=== PATIENT | female | born 1965 | race Caucasian/White ===

== ENCOUNTER → 2020-07-20 10:16 | Outpatient (CLI) | payer BC, SELFPAY ==
--- NOTE | ~2020-07-20 | XR_ITS ---
XR hip LT min 3V w AP pelvis DATE: 07/20/2020 10:46 INDICATION: Left hip pain TECHNIQUE: AP pelvis. AP and lateral views of left hip COMPARISON: 04/03/2019 pelvis and left hip FINDINGS: Status post L5 laminectomy. Mild levoscoliosis and multilevel degenerative disc disease of the lumbar spine. The pubic symphysis and sacroiliac joints are intact. No pelvic fracture or bone destruction. There is mild left hip osteoarthritic arthritis including mild left femoral head spurring. No fracture, dislocation, avascular necrosis or bone destruction of left hip. IMPRESSION: Mild left hip osteoarthritis Levoscoliosis, multilevel degenerative disc disease of lumbar spine L5 laminectomy Reviewed, dictated and finalized at location A.
--- NOTE | ~2020-07-20 | CT_ITS ---
EXAMINATION: CT lung screening EXAM DATE: 07/20/2020 10:55 INDICATION: F17.210 - Nicotine dependence, cigarettes, uncomplicated. TECHNIQUE: Spiral low dose CT of the chest without contrast. Axial, coronal and sagittal images were reviewed. The dose-length product (DLP) for this examination was 54.58 mGy-cm. The exposure was ta ilored according to patient size (auto mA exposure control), and iterative reconstruction (ASIR) was used as additional dose reduction technique. There is no prior study for comparison. FINDINGS: There is elongated right middle lobe opacity with some faint calcifications identified, re gion measuring approximately 2.4 x 0.7 cm, appearance most consistent with postinfectious residua. Th ere is a round nodule in the right lower lobe superior segment measuring 6 x 8 mm with central coarse calcification, also most likely postinfectious. There is mild emphysema and hyperinflation. Tracheo bronchial tree is patent. There is no mediastinal, hilar or axillary lymphadenopathy. There are n o pleural or pericardial effusions. There is no pneumothorax. Heart normal in size. No evidence of coronary arterial calcification. Upper abdomen is unremarkable. There are cholecystectomy clips. There is thoracic spondylosis without osteoblastic or osteolytic lesions identified. IMPRESSION: Lung-RADS category 3, probably benign (1-2% chance of malignancy); recommend followup LDC T in 3-6 months. Reviewed, dictated and finalized at location A. IMPRESSION: Lung-RADS category 3, probably benign (1-2% chance of malignancy); recommend followup LDCT in 3-6 months.
== END ==
PROVIDERS: PCP Family Medicine; Visit Provider Family Medicine
DX: Z12.2 Encounter for screening for malignant neoplasm of respiratory organs (principal); F17.210 Nicotine dependence, cigarettes, uncomplicated; M16.12 Unilateral primary osteoarthritis, left hip; M47.816 Spondylosis without myelopathy or radiculopathy, lumbar region
CPT/HCPCS: 71271; 73502

== ENCOUNTER → 2020-08-01 07:51 | Outpatient (CLI) | payer BC, SELFPAY ==
--- NOTE | ~2020-08-01 | MR_ITS ---
EXAMINATION: MR hip LT wo con DATE: 08/01/2020 08:52 INDICATION: Left hip pain TECHNIQUE: Magnetic resonance imaging (MRI) of the left hip was performed without intravenous contra st. Sequences included full-field axial PD-weighted FS FSE and T1-weighted FSE, coronal of the pelvis with PD-weighted FS FSE, small field of view of the left hip with axial PD-weighted FS FSE, sagitta l PD-weighted FS FSE and coronal PD weighted FS FSE. Additional radial T1-weighted FGR oriented ortho gonal to the acetabular rim were obtained for evaluation of the labrum. COMPARISON: Left hip radiographs dated 07/20/2020 FINDINGS: Bones/labrum/cartilage: Alignment is normal. 7 mm T1 hypointense, peripherally T2 hyperintense lesion at the posterior intert rochanteric region of the proximal right femur with subtle corresponding sclerotic lesion evident at this location on CT dated 03/31/2004 most consistent with a benign enchondroma. No fracture, avascula r necrosis or other pathologic marrow replacing process. Mild to moderate left hip osteoarthritis wit h posterior inferior and anterosuperior predominant nonuniform joint space narrowing with partial thi ckness cartilage loss. Mild subarticular cystic change and mild marrow edema at the anterosuperior le ft acetabulum. Small marginal osteophytes along the rim of the acetabulum and the posterior inferior femoral head. Degenerative tearing of the anterosuperior to posterior superior glenoid labrum. Simila r mild to moderate osteoarthritis and degenerative labral tearing suggested but not diagnostically ev aluated at the contralateral right hip on the larger field of view images. Severe lumbar spondylosis with postoperative changes of prior L5 and partial L4 laminectomies which are new since lumbar spine radiographs dated 03/16/2019. Fluid: Symmetric physiologic amount of fluid within both hip joints. Soft tissues: Normal and symmetric muscle bulk and signal in the pelvis and visualized proximal thighs. The iliopso as, gluteal and proximal hamstring tendons are normal. Limited evaluation of visceral organs of the p antonella is unremarkable. No pathologically enlarged pelvic/inguinal lymphadenopathy. IMPRESSION: 1. Mild to moderate osteoarthritis with associated labral degeneration of the left hip and similar ap pearance but not diagnostically evaluated on the larger field of view images at the contralateral rig ht hip. 2. Severe lumbar spondylosis with relatively recent postoperative change of prior L5 and partial L4 l aminectomies. Reviewed, dictated and finalized at location A. IMPRESSION: 1. Mild to moderate osteoarthritis with associated labral degeneration of the l eft hip and similar appearance but not diagnostically evaluated on the larger f ield of view images at the contralateral right hip. 2. Severe lumbar spondylosis with relatively recent postoperative change of mine or L5 and partial L4 laminectomies.
== END ==
PROVIDERS: PCP Family Medicine; Visit Provider Family Medicine
DX: M47.896 Other spondylosis, lumbar region (principal); M16.12 Unilateral primary osteoarthritis, left hip
CPT/HCPCS: 73721

== ENCOUNTER 2020-10-25 01:43 | Day surgery (SDC) | payer BC, SELFPAY ==
[2020-10-12 13:14] VITALS: BMI 21.2
[2020-10-25 11:02] VITALS: BP 113/80; PULSE 68; RESP 20; TEMP 36.1; O2SAT 100
[2020-10-25] MEDS: LACTATED RINGERS 1,000 ML 150 ML IV CONT (11:08)
--- NOTE | 2020-10-25 11:13 | WPDANESEPPF ---
Anes - Initial Pre Proc Eval Procedure: Operation Date: 10/25/20 12:00 Proposed Procedures p Screening Colonoscopy - Juaquin Rodrigez MD Date/Time: 10/25/20 11:13 Surgeon: Juaquin Rodrigez MD Pre Op Diagnosis: family hx of colon ca, neoplasm screening Patient Data Age: 55 Gender: F Height: 1.7 m Weight: 59.8 kg Last Vital Signs Temp 36.1 C L 10/25/20 11:02 Pulse 68 10/25/20 11:02 Resp 20 10/25/20 11:02 BP 113/80 10/25/20 11:02 Pulse Ox 100 10/25/20 11:02 Allergies Allergy/AdvReac Type Severity Reaction Status Date / Time No Known Allergies Allergy Verified 10/25/20 11:02 Home Medications Medication Instructions Recorded Confirmed Type ic-br-hgpi-FA-Ca carb-vit K 1 tablet PO DAILY 10/12/20 10/25/20 History [Women's Multivitamin] Patient hx anesthesia problems: none Family hx anesthesia problems: none PMFSH Past Medical History Medical History Low back pain Personal history of tobacco use Synovial cyst (~05/2020) Surgical History Surgical History H/O laminectomy (~05/2020) 5.27.20 H/O right breast biopsy 2013 History of cholecystectomy (~2001) History of lumbar laminectomy 5..20/ dr. foy Status post epidural steroid injection lumbar 2..20 Family History Family History Grandparent Family history of malignant neoplasm Mother Family history of congestive heart failure Social History Social History Smoking packs per day: 1 Smoking cigarettes per day: 20.0 Years smoked: 30 Smoking pack-years: 30.00 Smoking status: Current every day smoker Tobacco type: cigarettes Second hand tobacco smoke exposure: Yes Additional smoking assessment comments: 7 cigarettes per day Alcohol intake: current Drinks per week: 8 Living arrangements: with family Spiritual care concerns: No Anes - Eval Final PreProcedure Day of Procedure 10/25/20 11:13 Patient weight: normal Heart: regular rate and rhythm Lungs: clear to auscultation and normal air movement Airway: Mallampati scale class II Neurological: alert and oriented Last oral intake: >/= 8 hours ASA classification: III Emergent: no Anesthetic plan: proceed Anesthesia type and monitoring: general GIVS and standard monitoring Informed Consent: The patient's anesthetic plan and its attendant risks and benefits were discussed with the patient/family/POA. Questions were solicited and answers provided to the satisfaction of the patient/family/POA.
--- NOTE | 2020-10-25 11:43 | WPDGICN ---
Assessment and Plan Assessment and plan (1) Family history of colonic polyps: Code(s): Z83.71 - Family history of colonic polyps Status: Acute Assessment and Plan: Patient has a family history of colon polyps. For this reason screening colonoscopy advised. Further recommendations will be given after endoscopy. GI Consult Note Consult date/time: 10/25/20 11:43 HPI: Jennifer Huffman is a 55 year old female presents for screening colonoscopy. Patient reports that her current weight appetite bowel movements are normal. She denies abdominal pain. She has had no bleeding. Her bowel habits are unremarkable. Family history is significant for colon polyps in her father. Last colonoscopy was 2013. Review of Systems Review of Systems: All systems reviewed & are unremarkable except as noted in HPI and below PMFSH Past Medical History Medical History Low back pain Personal history of tobacco use Synovial cyst (~05/2020) Surgical History Surgical History H/O laminectomy (~05/2020) 5.27.20 H/O right breast biopsy 2013 History of cholecystectomy (~2001) History of lumbar laminectomy 5../ dr. foy Status post epidural steroid injection lumbar 2.. Family History Family History Grandparent Family history of malignant neoplasm Mother Family history of congestive heart failure Social History Social History Smoking packs per day: 1 Smoking cigarettes per day: 20.0 Years smoked: 30 Smoking pack-years: 30.00 Smoking status: Current every day smoker Tobacco type: cigarettes Second hand tobacco smoke exposure: Yes Additional smoking assessment comments: 7 cigarettes per day Alcohol intake: current Drinks per week: 8 Living arrangements: with family Spiritual care concerns: No Meds Home Medications and Allergies Home Medications Medication Instructions Recorded Confirmed Type lo-kn-gstw-FA-Ca carb-vit K 1 tablet PO DAILY 10/12/20 10/25/20 History [Women's Multivitamin] Allergies Allergy/AdvReac Type Severity Reaction Status Date / Time No Known Allergies Allergy Verified 10/25/20 11:02 Vital Signs Vital Signs - 24 hr 10/25/20 11:02 Temperature 96.9 F L Pulse Rate 68 Respiratory Rate 20 Blood Pressure 113/80 Pulse Oximetry 100 Exam Narrative: Exam Narrative: Physical exam reveals patient be alert. Vital signs stable. HEENT exam is unremarkable. Patient is anicteric. Lungs are clear to auscultation and percussion. Heart is without murmur or extra sounds. Abdominal exam bowel sounds are present soft nontender with no organomegaly. Digital external rectal exam normal.
[2020-10-25 12:41] VITALS: BP 90/46; PULSE 65; RESP 20; O2SAT 99
[2020-10-25 12:51] VITALS: BP 90/46; PULSE 78; RESP 18; O2SAT 100
[2020-10-25 13:01] VITALS: BP 112/85; PULSE 55; RESP 20; O2SAT 99
== END 2020-10-25 13:08 | disposition home or self-care (01) ==
PROVIDERS: PCP Family Medicine; Visit Provider Internal Medicine Gastroenterology
PROC: 0DJD8ZZ Inspection of Lower Intestinal Tract, Via Natural or Artificial Opening Endoscopic (ICD-10-PCS; CPT 45378; principal; 2020-10-25 12:00)
DX: Z12.11 Encounter for screening for malignant neoplasm of colon (principal); Z83.71 Family history of colonic polyps; K64.8 Other hemorrhoids; F17.210 Nicotine dependence, cigarettes, uncomplicated
CPT/HCPCS: 45378; J2704; J7120

== ENCOUNTER → 2020-10-28 10:16 | Outpatient (CLI) | payer BC, SELFPAY ==
--- NOTE | ~2020-10-28 | CT_ITS ---
EXAMINATION: CT diagnostic chest wo con EXAM DATE: 10/28/2020 10:32 INDICATION: F17.210 - Nicotine dependence, cigarettes, uncomplicated. Abnormal CT 07/20/2020. TECHNIQUE: Spiral CT of the chest without contrast. Axial, coronal and sagittal images of the chest were reviewed. Coronal maximum intensity pixel images of chest reviewed. The dose-length product ( DLP) for this examination was 51.27 mGy-cm. The exposure was tailored according to patient size (aut o mA exposure control), and iterative reconstruction (ASIR) was used as additional dose reduction inderjit hnique. Comparison is made to prior examination from 07/20/2020. FINDINGS: Both of the previously described right lung nodules with calcification are stable in size and appearance, larger in the right middle lobe measuring approximately 2.4 x 0.7 cm. This is consis tent with postinfectious residua. No new or suspicious nodules. Mild emphysema and hyperinflation. Th ere are no pleural or pericardial effusions. Tracheobronchial tree is patent. There is no mediast inal, hilar or axillary lymphadenopathy. There is no pneumothorax. Heart normal in size. No ismael dence of coronary arterial calcification. Upper abdomen is unremarkable. There is thoracic spondyl osis without osteoblastic or osteolytic lesions identified. IMPRESSION: 1. Stable exam. Lung-RADS category 2, benign appearance or behavior; recommend continued LDCT screeni ng in 1 year. 2. Mild emphysema and hyperinflation. Reviewed, dictated and finalized at location A. IMPRESSION: 1. Stable exam. Lung-RADS category 2, benign appearance or behavior; recommend continued LDCT screening in 1 year. 2. Mild emphysema and hyperinflation.
== END ==
PROVIDERS: PCP Family Medicine; Visit Provider Family Medicine
DX: F17.210 Nicotine dependence, cigarettes, uncomplicated (principal); J43.9 Emphysema, unspecified; R91.8 Other nonspecific abnormal finding of lung field
CPT/HCPCS: 71250

== ENCOUNTER 2020-12-12 07:58 | Outpatient (CLI) | payer BC, SELFPAY ==
--- NOTE | 2020-12-12 12:34 | WPDPFTINT ---
PFT Procedure Performed PFT Procedure Performed Plethysmography (Lung Vol) Diffusing Cap (DLCO) Flow Vol Loop Spirometry w/o Bronchodil PFT Interpretation This is a pulmonary function test with spirometry, plethysmography and diffusing capacity. The test was performed and results interpreted in accordance with the 2019 and 2005 ATS/ERS Task Force guidelines respectively using the Global Lung Function Initiative-2012 reference equations. Patient demonstrated good effort and cooperation. Reproducibility criteria were met. The quality of the spirometry maneuver was Grade B. Findings: Spirometry:There is decreased maximal expiratory airflow at low lung volumes with a concave expiratory flow tracing. The FVC is 3.68 L, 101% predicted. The FEV1 is 2.49 L, 87% predicted. The FEV1: FVC ratio is 68%. Plethysmography: The total lung capacity is 6.16 L, 112% predicted. Functional residual capacity is 3.81 L, 122% predicted. The residual volume is 2.48 L, 121% predicted. Diffusing capacity: The absolute diffusion capacity is 21.0, 90% predicted. The diffusing capacity corrected for alveolar volume is 4.00, 91% predicted. Impression: There is a mild obstructive abnormality with a normal FEV1 and without significant improvement after inhaling a single dose of albuterol. The lung volumes are normal. The diffusing capacity is normal. There are no prior studies for comparison
== END 2020-12-12 07:59 | disposition home or self-care (01) ==
PROVIDERS: PCP Family Medicine; Visit Provider Family Medicine
DX: J43.9 Emphysema, unspecified (principal); F17.219 Nicotine dependence, cigarettes, with unspecified nicotine-induced disorders; R94.2 Abnormal results of pulmonary function studies
CPT/HCPCS: 94375; 94726; 94729

== ENCOUNTER → 2021-12-01 08:17 | Outpatient (CLI) | payer BC, SELFPAY ==
--- NOTE | ~2021-12-01 | CT_ITS ---
EXAMINATION: CT lung screening DATE: 12/01/2021 08:33 INDICATION: Personal history of tobacco dependence TECHNIQUE: Computed tomography (CT) of the chest was performed without intravenous contrast. The dose -length product was 48.23 mGy-cm. Automated exposure control and iterative reconstruction technique w ere employed. COMPARISON: CT dated 10/28/2020 and 07/20/2020 FINDINGS: Mild mediastinal lymphadenopathy. Precarinal lymph node measures 10 mm short axis. Heart si ze normal. No significant pleural or pericardial effusion. Stable centrally calcified 12 mm nodule ri ght lower lobe, image 58. Stable linear and nodular soft tissue in the right middle lobe. The soft ti ssue contains internal calcifications, most likely postinfectious. Mild emphysema. No endobronchial l esions. Mild thoracic spondylosis. No new pulmonary nodules or masses. IMPRESSION: 1. Lung-RADS category 2: Benign appearance or behavior. Continue annual screening with noncontrast lo w-dose chest CT in 12 months. Reviewed, dictated and finalized at location B. IMPRESSION: 1. Lung-RADS category 2: Benign appearance or behavior. Continue annual screeni ng with noncontrast low-dose chest CT in 12 months.
== END ==
PROVIDERS: PCP Family Medicine; Visit Provider Family Medicine
DX: Z12.2 Encounter for screening for malignant neoplasm of respiratory organs (principal); Z87.891 Personal history of nicotine dependence
CPT/HCPCS: 71271

== ENCOUNTER → 2023-02-20 08:50 | Outpatient (CLI) | payer BC, SELFPAY ==
--- NOTE | ~2023-02-20 | CT_ITS ---
CT Scan of the Chest without Contrast: Clinical Indication: Lung cancer screening, personal history of nicotine dependence Technique: Contiguous sections were acquired throughout the chest without intravenous contrast. Dose reduction technique was used on this scan by utilizing automated exposure control and iterative recon struction technique. The dose-length product (DLP) was 84.19 mGy-cm. COMPARISON: 12/01/2021, 07/20/2020 Findings: There is no evidence of any significant mediastinal, hilar or axillary lymphadenopathy. The mediastin al soft tissues appear normal. There is no evidence of pleural or pericardial effusion. Calcified right lower lobe granuloma present. Calcified granulomas in the right middle lobe are also present. Images through the upper abdomen reveal no abnormalities. Impression: Lung RADS 2: Benign appearance. 12 month follow-up screening CT advised. Reviewed, dictated and finalized at [facility]. SWAMPER Impression: Lung RADS 2: Benign appearance. 12 month follow-up screening CT advised.
== END ==
PROVIDERS: PCP Family Medicine; Visit Provider Family Medicine
DX: Z12.2 Encounter for screening for malignant neoplasm of respiratory organs (principal); R91.8 Other nonspecific abnormal finding of lung field; F17.219 Nicotine dependence, cigarettes, with unspecified nicotine-induced disorders
CPT/HCPCS: 71271

== ENCOUNTER 2023-11-04 07:50 | Outpatient (CLI) | payer BC, SELFPAY | END 2023-11-04 07:51 | disposition home or self-care (01) | LOC: ANHAUDASC 07:51 | PROVIDERS: PCP Family Medicine; Visit Provider Family Medicine | DX: H90.3 Sensorineural hearing loss, bilateral (principal) | CPT/HCPCS: 92557; 92567 ==

== ENCOUNTER 2024-03-09 13:43 | Outpatient (CLI) | payer BC, SELFPAY ==
--- NOTE | ~2024-03-09 | CT_ITS ---
EXAMINATION:CT lung screening DATE: 03/09/2024 14:03 INDICATION: Personal history of nicotine dependence. Smoker who quit 1 year ago with 30 pack year his tory. TECHNIQUE: Computed tomography (CT) of the chest was performed without intravenous contrast. Automate d exposure control and iterative reconstruction technique were employed. The dose-length product (DLP ) was 47.17 mGy-cm. COMPARISON: Chest CT 02/20/2023 FINDINGS: There is mild scarring at the lung apices. There is a 2 mm nodule in right upper lobe. Calc ified right lung nodules are consistent with old granulomatous disease. No pleural effusion. The hear t size is normal. No pericardial effusion. There are changes of cholecystectomy. There is mild chroni c anterior wedging of multiple vertebral bodies. There is severe thoracic spondylosis. IMPRESSION: 1. Lung-RADS category 2: Benign appearance or behavior. Continue annual screening with noncontrast lo w-dose chest CT in 12 months. Reviewed, dictated and finalized at location A. [employer] WORK[employer] IMPRESSION: 1. Lung-RADS category 2: Benign appearance or behavior. Continue annual screeni ng with noncontrast low-dose chest CT in 12 months.
== END 2024-03-09 13:44 | disposition home or self-care (01) ==
LOC: MICIMG 13:44
PROVIDERS: PCP Family Medicine; Visit Provider Family Medicine
DX: Z12.2 Encounter for screening for malignant neoplasm of respiratory organs (principal); Z87.891 Personal history of nicotine dependence
CPT/HCPCS: 71271

== ENCOUNTER 2024-09-24 09:32 | Outpatient (CLI) | payer BC, SELFPAY ==
--- NOTE | ~2024-09-24 | XR_ITS ---
XR chest 2V 09/24/2024 09:52 Indication: Pulmonary nodule. Procedure: 2 view chest Comparison: CT dated 03/09/2024 Findings: There are calcified nodules right mid thorax consistent with chronic granulomatous disease with similar appearance compared with prior CT allowing for differences of technique. Heart size norm al. No focal air space disease, pulmonary edema, pleural effusion or suspected pneumothorax. Impression: 1: No acute cardiopulmonary disease. 2: Chronic granulomatous disease. Reviewed, dictated and finalized at location B. Impression: 1: No acute cardiopulmonary disease. 2: Chronic granulomatous disease.
== END 2024-09-24 09:33 | disposition home or self-care (01) ==
LOC: GOSHIMG 09:32
PROVIDERS: PCP Family Medicine; Visit Provider Family Medicine
DX: R91.1 Solitary pulmonary nodule (principal)
CPT/HCPCS: 71046

== ENCOUNTER 2024-10-15 08:48 | Outpatient (CLI) | payer BC, SELFPAY ==
--- OUTSIDE RECORDS SUMMARY | 2024-10-15 08:52 | XMS_ITS | Referral Summary ---
Author Organization [facility] Address [address] [place] [address] Care Team Providers Care Chalk Machine Operator Name Role Phone Zahra Canchola MD Primary Care Provider + Encounters Date Type Department Care Team Description 09/13/2024 Telephone [facility] at [address] [phone] Michelle Beasley NP Follow-up 08/17/2024 Results Follow-Up [facility] at [address] [phone] Michelle Beasley NP XR Chest Pa Lateral 2 Views 08/17/2024 12:20 PM CDT Ancillary Procedure [facility] Imaging at [address] [phone] Acute cough 08/17/2024 11:30 AM CDT Office Visit [facility] at [address] [phone] Michelle Beasley NP Acute cough (Primary Dx) 08/12/2024 9:45 AM CDT Office Visit [facility] at [address] [phone] Zac Jimenez NP Flu-like symptoms (Primary Dx); Acute cough from Last 3 Months Allergies No known active allergies Medications multivitamin-Ca -iron-minerals tablet Take by mouth Active famotidine (PEPCID) 40 mg tablet Take 1 tablet (40 mg total) by mouth daily 2 Active benzonatate (TESSALON) 200 mg capsuleIndicati ons:Acute cough Take 1 capsule (200 mg total) by mouth 3 (three) times a day as needed for cough keep tessalon out of reach of children, especially children under the age of 10, due to possible serious risk such as if ingested by children under the age of 10. 30 capsule 5 Active Additional Information Patient not taking.Reported on 08/17/2024 albuterol HFA (PROVENTIL HFA,VENTOLIN HFA,PROAIR HFA) 90 mcg/actuation inhalerIndicati ons:Acute cough Inhale 2 puffs every 6 (six) hours as needed for wheezing or shortness of breath 18 g 5 Active Active Problems Problem Noted Date Diagnosed Date Trigger ring finger of right hand 04/01/2024 Old complex tear of medial meniscus of right kne e 12/07/2019 Chronic pain of left knee 11/12/2019 Internal derangement of left knee 11/12/2019 Synovial cyst of lumbar facet joint 05/06/2019 Social History Tobacco Use Types Packs/Day Years Used Date Smoking Tobacco: Every Day Cigarettes 0.5 30 Smokeless Tobacco: Never Tobacco Cessation:Ready to Q uit: Not Asked; Counseling Given: Not Answered Comments Unknown Sex and Gender Information Value Date Recorded Sex Assigned at Not on file 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 Gender Identity Not on file Sexual Orientation Not on file Last Filed Vital Signs Vital Sign Reading Time Taken Comments Blood Pressure 125/79 08/17/2024 11:30 AM CDT Pulse 73 08/17/2024 12:10 PM CDT Temperature 36.6 C (97.8 F) 08/17/2024 11:30 AM CDT Respiratory Rate 22 08/17/2024 11:30 AM CDT Oxygen Saturation 93% 08/17/2024 12:16 PM CDT Inhaled Oxygen Concentration - - Weight 60.8 kg (134 lb) 08/17/2024 11:30 AM CDT Height 170.2 cm (5' 7) 08/17/2024 11:30 AM CDT Body Mass Index 20.99 08/17/2024 11:30 AM CDT Plan of Treatment Not on file Procedures Procedure Name Priority Date/Time Associated Diagnosis Comments XR CHEST PA LATERAL 2 VIEWS Schedule TERRELL, Read TERRELL (Appt Today, Awaiting Results) 08/17/2024 12:26 PM CDT Acute cough POC INFLUENZA A/B, COVID-19 ANTIGEN Routine 08/12/2024 10:09 AM CDT Flu-like symptoms POCT RAPID STREP Routine 08/12/2024 10:0 9 AM CDT Flu-like symptoms SCREENING MAMMOGRAM BILATERAL W GOYO Schedule Routine, Read Routine (OP Routine) 12/03/2023 9:32 AM CDT Screening mammogram, encounter for from Last 3 Months or Most Recently Relevant to Health Maintenance Results * XR Chest Pa Lateral 2 Views (08/17/2024 12:26 PM CDT) Anatomical Region Laterality Modality Body, Chest N/A Digital Radiogra phy 08/17/2024 4:51 PM CDT Narrative 08/17/2024 5:02 PM CDT EXAM DESCRIPTION: XR CHEST PA LATERAL 2 VIEWS REASON FOR STUDY: cough Pt complains of cough for about ten days. No surgery to heart, lungs, or chest. Ex-smoker quitting a year and a half ago. Pt smoked about 25-30 years, 1 PPD TECHNIQUE: Frontal and lateral radiographic view(s) of the chest. COMPARISON: None FINDINGS: The heart, mediastinum, and pulmonary vasculature are grossly unremarkable. There is no definite evidence of a pneumothorax. There is an irregular nodular opacity in the lower right lung measuring up to 3.0 cm. There is no definite evidence of pleural effusion. The osseous structures are acutely grossly unremarkable. IMPRESSION: Irregular nodular opacity in the lower right lung, which is indeterminate in etiology. Further evaluation with chest CT is recommended as clinically indicated. Attempts were made to contact the ordering clinician at the time of the dictation, which were unsuccessful. THIS IS AN ELECTRONICALLY VERIFIED FINAL REPORT 08/17/2024 5:02 PM - Electronically signed by Melissa Nam D.O. PS T: Report ID: [id number] Reading Location: [id number] Procedure Note Cyril Melissa Vitaly, DO - 08/17/2024 EXAM DESCRIPTION: XR CHEST PA LATERAL 2 VIEWS REASON FOR STUDY: cough Pt complains of cough for about ten days. No surgery to heart, lungs, or chest. Ex-smoker quitting a year and a half ago. Pt smoked about 25-30years, 1 PPD TECHNIQUE: Frontal and lateral radiographic view(s) of the chest. COMPARISON: None FINDINGS: The heart, mediastinum, and pulmonary vasculature are grossly unremarkable. There is no definite evidence of a pneumothorax. There isan irregular nodular opacity in the lower right lung measuring up to 3.0 cm. There is no definite evidence of pleural effusion. The osseous structures are acutely grossly unremarkable. IMPRESSION: Irregular nodular opacity in the lower right lung, which is indeterminatein etiology. Further evaluation with chest CT is recommended as clinically indicated. Attempts were made to contact the ordering clinician at the time of the dictation, which were unsuccessful. THIS IS AN ELECTRONICALLY VERIFIED FINAL REPORT 08/17/2024 5:02 PM - Electronically signed by Melissa Nam D.O. PS T: Report ID: [id number] Reading Location: [id number] Michelle Beasley BREASTFEEDING PROGRAM COORDINATOR IMG XR PROCEDURES Final Re sult * POC Influenza A/B, COVID-19 antigen (08/12/2024 10:09 AM CDT) Influenza A Ag, POC Negative Negative [facility] Influenza B Ag, POC Negative Negative [facility] COVID-19 Ag POC Presumptive Negative Presumptive Negative, Invalid [facility] Nasal 08/12/2024 10:0 9 AM CDT Zac Jimenez NP POINT OF CARE TEST ORDERABLES F inal Result [facility] [address] [place] [address] * POCT rapid strep A (08/12/2024 10:09 AM CDT) Rapid Strep A, POC Negative Negative Swab 08/12/2024 10:0 9 AM CDT Zac Jimenez NP POINT OF CARE TEST ORDERABLES F inal Result * Screening Mammogram Bilateral W Goyo (12/03/2023 9:32 AM CDT) Anatomical Region Laterality Modality Breast Bilateral Mammography Narrative 12/04/2023 1:14 PM CDT Mammogram Technique: Bilateral Digital Breast Tomosynthesis, Bilateral C-view 2D Screening mammogram. Views obtained: bilateral craniocaudal and bilateral mediolateral oblique. Computer Aided Detection was performed. Mammogram Findings: The present examination has been compared to prior imaging studies performed at [facility] on 11/03/2021, 12/03/2022 and 01/01/2023. The breasts are heterogeneously dense, which may obscure small masses. There is no suspicious abnormality in either breast. Impression: There is no mammographic evidence of malignancy. Annual screening mammography is recommended. If supplemental screening is desired, breast MRI would be recommended in this patient with heterogeneously dense breasts. OVERALL FINAL ASSESSMENT: BI-RADS CATEGORY 1: Negative. Procedure Note Sada Castro MD - 12/04/2023 Mammogram Technique: Bilateral Digital Breast Tomosynthesis, Bilateral C-view 2D Screening mammogram. Views obtained: bilateral craniocaudal and bilateral mediolateral oblique. Computer Aided Detection was performed. Mammogram Findings: The present examination has been compared to prior imaging studies performed at [facility] on 11/03/2021, 12/03/2022 and 01/01/2023. The breasts are heterogeneously dense, which may obscure small masses. There is no suspicious abnormality in either breast. Impression: There is no mammographic evidence of malignancy. Annual screening mammography is recommended. If supplemental screeningis desired, breast MRI would be recommended in this patient with heterogeneously dense breasts. OVERALL FINAL ASSESSMENT: BI-RADS CATEGORY 1: Negative. us Self Screening Mammogram IMG MAMMO PROCEDURES Fi nal Result from Last 3 Months or Most Recently Relevant to Health Maintenance Insurance [employer] Care Teams Chalk Machine Operator Relationship Specialty Start Date End Date Zahra Canchola MD PCP - General Family Medicine 10/11/22
--- OUTSIDE RECORDS SUMMARY | 2024-10-15 08:52 | XMS_ITS | Clinical Summary ---
Author Organization [facility] Address [address] [place] [address] Care Team Providers Care Jury Consultant Name Role Phone Zahra Canchola MD Primary Care Provider + Allergies No known active allergies Medications multivitamin-Ca [...] Synovial cyst of lumbar facet joint 05/06/2019 Encounters Date Type Department Care Team Description 09/13/2024 Telephone [facility] at [address] [id number] Michelle Beasley NP Follow-up 08/17/2024 12:20 PM CDT Ancillary Procedure [facility] Imaging at [address] [phone] Acute cough 08/17/2024 11:30 AM CDT Office Visit [facility] at [address] [phone] Michelle Beasley NP Acute cough (Primary Dx) 08/17/2024 Results Follow-Up [facility] at [address] [phone] Michelle Beasley NP XR Chest Pa Lateral 2 Views 08/12/2024 9:45 AM CDT Office Visit [facility] at [address] [phone] Zac Jimenez NP Flu-like symptoms (Primary Dx); Acute cough from Last 3 Months Surgical History Surgery Date Site/Laterality Comments CHOLECYSTECTOMY COLONOSCOPY 04/15/2020 - 04/14/2021 LAMINECTOMY 04/15/2019 - 04/14/2020 SPINE SURGERY 04/15/2020 - 04/14/2021 cyst removal Medical History Medical History Date Comments No pertinent past medical history Family History Medical History Relation Name Comments Colon polyps Father No Known Problems Mother Relation Name Status Comments Father Mother Social History Tobacco Use Types Packs/Day Years Used Date Smoking Tobacco: Every Day Cigarettes 0.5 30 Smokeless Tobacco: Never Tobacco Cessation:Ready to Q uit: Not Asked; Counseling Given: Not Answered Comments Unknown Sex and Gender Information Value Date Recorded Sex Assigned at Not on file 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 Gender Identity Not on file Sexual Orientation Not on file Obstetrics History Last Filed Vital Signs Vital Sign Reading [...] 08/17/2024 11:30 AM CDT Plan of Treatment Health Maintenance Due Date Last Done Comments Cervical Cancer Screening 1965 Colon Cancer Screening-Colonoscopy 1965 Depression Screening 1965 Hepatitis C Screening 1965 Hepatitis B Screening 02/18/1982 Regular Well Visit/Exam 18-64 02/18/1982 Pneumococcal vaccine <65 (1 of 2 - PCV) 02/18/1983 Zoster Vaccine (1 of 2) 02/18/2014 Breast Cancer Screening-Mammogram 12/02/2024 12/03/2023, 12/03/2022, 11/03/2021, Additional history exists Influenza Vaccine (#1) 2024 02/09/2020 DTaP/Tdap/Td Vaccine (2 - Td or Tdap) 05/09/2027 05/09/2017 Procedures Procedure Name Priority Date/Time Associated Diagnosis Comments XR CHEST PA LATERAL 2 VIEWS Schedule TERRELL, Read TERRELL (Appt Today, Awaiting Results) 08/17/2024 12:26 PM CDT Acute cough POC INFLUENZA A/B, COVID-19 ANTIGEN Routine 08/12/2024 10:09 AM CDT Flu-like symptoms POCT RAPID STREP Routine 08/12/2024 10:0 9 AM CDT Flu-like symptoms SCREENING MAMMOGRAM BILATERAL W CHAN Schedule Routine, Read Routine (OP Routine) 12/03/2023 [...] Melissa Nam D.O. PS T: Report ID: [id number] Reading Location: [id number] Procedure Note Melissa Nam, DO - 08/17/2024 EXAM DESCRIPTION: XR CHEST [...] Melissa Nam D.O. PS T: Report ID: [id number] Reading Location: [id number] Michelle Beasley NETWORK ADMIN IMG XR PROCEDURES Final Re sult * POC Influenza A/B, COVID-19 antigen (08/12/2024 10:09 AM CDT) Influenza A Ag, POC Negative Negative [facility] Influenza B Ag, POC Negative Negative [facility] COVID-19 Ag POC Presumptive Negative Presumptive Negative, Invalid [facility] Nasal 08/12/2024 10:0 9 AM CDT Zac Jimenez NP POINT OF CARE TEST ORDERABLES F inal Result Performing Organization Address City/State/[facility] Co de Phone Number [facility] [address] [place] [address] * POCT rapid strep A (08/12/2024 10:09 AM CDT) Rapid Strep A, POC Negative Negative Swab 08/12/2024 10:0 9 AM CDT Zac Jimenez NP POINT OF CARE TEST ORDERABLES F inal Result * Screening Mammogram Bilateral W Chan (12/03/2023 9:32 AM CDT) Anatomical Region Laterality Modality Breast Bilateral Mammography Narrative 12/04/2023 1:14 PM CDT Mammogram Technique: Bilateral Digital Breast Tomosynthesis, Bilateral C-view 2D Screening mammogram. Views obtained: bilateral craniocaudal and bilateral mediolateral oblique. Computer Aided Detection was performed. Mammogram Findings: The present examination has been compared to prior imaging studies performed at [facility] on 11/03/2021, 12/03/2022 and 01/01/2023. [...] compared to prior imaging studies performed at [facility] on 11/03/2021, 12/03/2022 and 01/01/2023. [...] Most Recently Relevant to Health Maintenance Insurance [facility] [employer] [place] Netac [place] Care Teams Jury Consultant Relationship Specialty Start Date End Date Zahra Canchola MD PCP - General Family Medicine 10/11/22
[2024-10-15 12:49] LABS: Hematocrit 41.4 % (37.0-47.0); Hemoglobin 13.2 g/dL (12.0-15.0); Immature Granulocyte Percent A 0.2 % (0-0.5); Lymphocytes Absolute Auto 1.38 K/mm3 (0.9-3.2); Mean Corpuscular HGB Conc 31.9 g/dl (32-36); Mean Corpuscular Hemoglobin 29.1 pg (26-34); Mean Corpuscular Volume 91.4 fl (80-100); Nucleated Red Blood Cells Absolute Auto 0.000 K/mm3 (0.0-0.012); Nucleated Red Blood Cells Perc 0.0 % (0.0-0.2); Platelet Count Result 293 k/mm3 (150-375); Red Blood Count 4.53 M/mm3 (4.2-5.4); White Blood Count 5.3 K/mm3 (4.5-10.0)
[2024-10-15 13:04] LABS: Alanine Aminotransferase 14 U/L (6-35); Albumin Level 4.7 g/dL (3.5-5.1); Alkaline Phosphatase 44 U/L (38-126); Anion Gap 7 mmol/L (4-12); Aspartate Amino Transferase 39 U/L (14-36); Bilirubin,Total 0.8 mg/dL (0.2-1.3); Blood Urea Nitrogen 20 mg/dL (7-17); Calcium 9.0 mg/dL (8.4-10.2); Carbon Dioxide 28 mmol/L (22-30); Chloride 104 mmol/L (98-107); Cholesterol 234 mg/dL (0-200); Estimated Glomerular Filt Rate > 60; Glucose 89 mg/dL (65-110); HDL Direct 74 mg/dL; Potassium 4.6 mmol/L (3.4-5.0); Sodium 139 mmol/L (137-145); Total Protein 7.5 g/dL (6.3-8.2); Triglycerides 36 mg/dL (<150)
== END 2024-10-15 08:49 | disposition home or self-care (01) ==
LOC: ANHGOSHLAB 08:49
PROVIDERS: PCP Family Medicine; Visit Provider Family Medicine
DX: Z00.00 Encounter for general adult medical examination without abnormal findings (principal)
CPT/HCPCS: 36415; 80053; 80061; 85025

== ENCOUNTER 2025-03-18 00:56 | Day surgery (SDC) | payer BC, SELFPAY ==
[2025-03-16 12:56] VITALS: BMI 21.4
--- OUTSIDE RECORDS SUMMARY | 2025-03-18 01:00 | XMS_ITS | Clinical Summary ---
Author Organization [facility] Address [address] [place] [address] Care Team Providers Care Engraver Signature Name Role Phone Zahra Canchola MD Primary [...] Synovial cyst of lumbar facet joint 05/06/2019 Surgical History Surgery Date Site/Laterality Comments CHOLECYSTECTOMY COLONOSCOPY 04/15/2020 - 04/14/2021 LAMINECTOMY 04/15/2019 - 04/14/2020 SPINE SURGERY 04/15/2020 - 04/14/2021 cyst removal BREAST BIOPSY 04/15/2013 - 04/14/2014 Right needle biopsy- benign Medical History Medical History Date Comments No pertinent past medical history Family History Medical History Relation Name Comments Colon polyps Father No Known Problems Mother Relation Name Status Comments Father Mother Social History Tobacco Use Types Packs/Day Years Used Date Smoking Tobacco: Every Day Cigarettes 0.5 30 Smokeless Tobacco: Never Tobacco Cessation:Ready to Q uit: Not Asked; Counseling Given: Not Answered Comments No Sex and Gender Information Value Date Recorded Sex Assigned at Not on file 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 Gender Identity Not on file Sexual Orientation Not on file Obstetrics History Para Term AB IAB SAB Ectopic Multiple Livin g Live Births 0 0 0 0 0 0 0 0 0 0 0 Last Filed Vital Signs Vital Sign Reading Time Taken Comments Blood Pressure 125/79 08/17/2024 11:30 AM CDT Pulse 73 08/17/2024 12:10 PM CDT Temperature 36.6 C (97.8 F) 08/17/2024 11:30 AM CDT Respiratory Rate 22 08/17/2024 11:30 AM CDT Oxygen Saturation 93% 08/17/2024 12:16 PM CDT Inhaled Oxygen Concentration - - Weight 61.2 kg (135 lb) 12/16/2024 1:01 PM CDT Height 170.2 cm (5' 7) 12/16/2024 1:01 PM CDT Body Mass Index 21.14 12/16/2024 1:01 PM CDT Plan of Treatment Health Maintenance Due Date Last Done Comments Cervical Cancer Screening 1965 Colon Cancer Screening-Colonoscopy 1964 Depression Screening 1964 Hepatitis C Screening 1965 Hepatitis B Screening 02/18/1982 Regular Well Visit/Exam 18-64 02/18/1982 Zoster Vaccine (1 of 2) 02/18/2014 Pneumococcal vaccine <65 (2 of 2 - PCV) 04/18/2022 04/18/2021 Influenza Vaccine (#1) 2024 01/23/2021, 2019 Breast Cancer Screening-Mammogram 12/16/2025 12/16/2024, 12/03/2023, 12/03/2022, Additional history exists DTaP/Tdap/Td Vaccine (2 - Td or Tdap) 05/09/2027 05/09/2017 Procedures Procedure Name Priority Date/Time Associated Diagnosis Comments SCREENING MAMMOGRAM BILATERAL W CHAN Schedule Routine, Read Routine (OP Routine) 12/16/2024 1:06 PM CDT Screening mammogram, encounter for from Last 3 Months or Most Recently Relevant to Health Maintenance Results * Screening Mammogram Bilateral W Chan (12/16/2024 1:06 PM CDT) Anatomical Region Laterality Modality Breast Bilateral Mammography Impressions 12/17/2024 8:26 AM CDT Bilateral No evidence of malignancy in either breast. OVERALL BI-RADS FINAL ASSESSMENT: 2 - Benign RECOMMENDATION: Recommend bilateral annual screening mammography. If supplemental screening is desired for heterogeneously dense breast tissue, consider breast MRI every 1-2 years. If breast MRI cannot be performed, contrast-enhanced mammography is an alternative. Narrative 12/17/2024 8:26 AM CDT EXAMINATION: Screening Mammogram Bilateral W Chan: 12/16/2024 COMPARISON: Relevant prior studies available at the time of interpretation were reviewed, including the most recent mammogram on: 12/03/2023, 01/01/2023, 12/03/2022, and 11/03/2021. TECHNIQUE: Mammography was performed with 2D and 3D digital breast tomosynthesis (DBT) images. CAD was utilized. BREAST PARENCHYMAL COMPOSITION: The breasts are heterogeneously dense, which may obscure small masses. FINDINGS: Bilateral There is no suspicious mass, calcification, or architectural distortion in either breast. us Self Screening Mammogram IMG MAMMO PROCEDURES Fi nal Result from Last 3 Months or Most Recently Relevant to Health Maintenance Insurance [facility] [place] Care Teams Engraver Signature Relationship Specialty Start Date End Date Zahra Canchola MD PCP - General Family Medicine 10/11/22
[2025-03-18 08:22] VITALS: BP 124/62; PULSE 60; RESP 20; TEMP 36.4; O2SAT 99
[2025-03-18] MEDS: LACTATED RINGERS 1,000 ML 150 ML IV CONT (08:35)
--- NOTE | 2025-03-18 08:35 | P.PNAN_ITS ---
Anes - Initial Pre Proc Eval Procedure: Operation Date: 03/18/25 09:30 Proposed Procedures p Diagnostic Colonoscopy - Tello Lomeli MD Date/Time: 03/18/25 08:35 Surgeon: Tello Lomeli MD Pre Op Diagnosis: Change in bowel habit Patient Data Age: 60 Gender: F Height: 1.7 m Weight: 61.7 kg Last Vital Signs Temp 36.4 C L 03/18/25 08:22 Pulse 60 03/18/25 08:22 Resp 20 03/18/25 08:22 BP 124/62 03/18/25 08:22 Pulse Ox 99 03/18/25 08:22 O2 Del Method Room Air 03/18/25 08:22 Allergies Allergy/AdvReac Type Severity Reaction Status Date / Time No Known Allergies Allergy Verified 03/18/25 08:20 Home Medications ?Medication ?Instructions ?Recorded ?Confirmed ?Type mugypoyl-rqk-[id number]-FA-Ca carb-vit K 1 tablet PO DAILY 0 10/12/20 03/18/25 History 18 mg iron-400 mcg-500 mg tablet (Women's Multivitamin) famotidine 40 mg tablet See Rx Instructions .Route 0 08/24/24 03/18/25 Rx .COMPLEX #90 tabs Patient hx anesthesia problems: none Family hx anesthesia problems: none Results Review: All pre-operative results and documents have been reviewed as part of the pre-operative evaluation. [facility] Past Medical History Medical History Sciatica Epigastric pain Synovial cyst (~05/2020) Low back pain Personal history of tobacco use Surgical History Surgical History H/O right breast biopsy 2013 H/O laminectomy (~05/2020) 5..20 History of lumbar laminectomy 5..20/ dr. foy Status post epidural steroid injection lumbar 2..20 History of cholecystectomy (~2001) Family History Family History Grandparent Family history of malignant neoplasm Mother Family history of congestive heart failure Social History Social History Smoking packs per day: 1 Smoking cigarettes per day: 20.0 Years smoked: 25 Smoking pack-years: 25.00 Smoking status: Current every day smoker Tobacco type: e-cigarettes/vaping Second hand tobacco smoke exposure: Yes Smoking end date: 07/15/22 Additional smoking assessment comments: Currently Vapes Alcohol intake: current Drinks per week: 7 Substance use: current Substance use type: marijuana Lack of Transportation: No Lack of Food: Never True Current Housing: I Have Housing Concerned About Future Housing: No Difficulty Paying Gas/Electric Bills: No Difficulty Paying for Meds: No Currently Unemployed: No Education: Bachelor's Degree Difficulty w/ Childcare or Family Care: No Living arrangements: with family Spiritual care concerns: No Anes - Eval Final PreProcedure Day of Procedure 03/18/25 08:35 Patient weight: normal Heart: regular rate and rhythm Lungs: decreased breath sounds Airway: Mallampati scale class II Neurological: alert and oriented Last oral intake: >/= 8 hours ASA classification: III Emergent: no Anesthetic plan: proceed Anesthesia type and monitoring: general GIVS and standard monitoring Results Review: All pre-operative results and documents have been reviewed as part of the pre- operative evaluation. Informed Consent: The patient's anesthetic plan and its attendant risks and benefits were discussed with the patient/family/POA. Questions were solicited and answers provided to the satisfaction of the patient/family/POA.
--- NOTE | 2025-03-18 08:46 | P.HP_ITS ---
History of Present Illness History of Present Illness Consent: Risks, benefits, and alternatives have been discussed and questions answered. Patient agrees to proceed with procedure. Chief complaint: Change in bowel habit Narrative: Jennifer Huffman is a 60 year old female with last colonoscopy 2020, last several weeks with change bowel habits Review of Systems Review of Systems: All systems reviewed & are unremarkable except as noted in HPI and below PMFSH Past Medical History Medical History Sciatica Epigastric pain Synovial cyst (~05/2020) Low back pain Personal history of tobacco use Surgical History Surgical History H/O right breast biopsy 2013 H/O laminectomy (~05/2020) 09.09.19 History of lumbar laminectomy 09.09.19/ dr. foy Status post epidural steroid injection lumbar 06.10.19 History of cholecystectomy (~2001) Family History Family History Grandparent Family history of malignant neoplasm Mother Family history of congestive heart failure Social History Social History Smoking packs per day: 1 Smoking cigarettes per day: 20.0 Years smoked: 25 Smoking pack-years: 25.00 Smoking status: Current every day smoker Tobacco type: e-cigarettes/vaping Second hand tobacco smoke exposure: Yes Smoking end date: 07/15/22 Additional smoking assessment comments: Currently Vapes Alcohol intake: current Drinks per week: 7 Substance use: current Substance use type: marijuana Lack of Transportation: No Lack of Food: Never True Current Housing: I Have Housing Concerned About Future Housing: No Difficulty Paying Gas/Electric Bills: No Difficulty Paying for Meds: No Currently Unemployed: No Education: Bachelor's Degree Difficulty w/ Childcare or Family Care: No Living arrangements: with family Spiritual care concerns: No Meds Home Medications and Allergies Home Medications ?Medication ?Instructions ?Recorded ?Confirmed ?Type [id number]-[id number]-[id number]-FA-Ca carb-vit K 1 tablet PO DAILY 0 10/12/20 03/18/25 History 18 mg iron-400 mcg-500 mg tablet (Women's Multivitamin) famotidine 40 mg tablet See Rx Instructions .Route 0 08/24/24 03/18/25 Rx .COMPLEX #90 tabs Allergies Allergy/AdvReac Type Severity Reaction Status Date / Time No Known Allergies Allergy Verified 03/18/25 08:20 Vital Signs Vital Signs - 24 hr 03/18/25 08:22 Temperature 97.5 F L Pulse Rate 60 Respiratory Rate 20 Blood Pressure 124/62 Pulse Oximetry 99 Oxygen Delivery Room Air Exam Const: General: comfortable and no acute distress HENMT: Face/Nose/Sinus: Normal nares present Eyes: General: appearance normal, both eyes and all related structures Neck: Neck: no JVD Resp: Auscultation: clear to auscultation bilaterally Cardio: Rate: regular rate Rhythm: regular rhythm GI: Inspection: non-distended GI Palp: Yes Soft to palpation Skin: General skin exam: normal color Extrem: General: normal to inspection Psych: Mental Status: mental status grossly normal Assessment and Plan Assessment and plan (1) Change in stool habits: Code(s): R19.4 - Change in bowel habit Status: Acute Assessment and Plan: colonoscopy with bx
--- NOTE | 2025-03-18 08:56 | S_PTH ---
PATIENT: Jennifer Huffman LOC: [facility]#:[id number] AGE/SX: 60/F ROOM: RE03/18/[address]: Tello Lomeli MD : 1965 BED: DIS: 03/18/2025 SPEC #: [id number] RECD: 03/18/25 09:40 STATUS: JAVIER REPatricia #: [id number] GENEVIEVE: 03/18/25 08:[address]: Tello Lomeli DEPT: [facility] Surgical RECD BY: Dee Mcgee ENTERED: 03/18/25 09:40 SP TYPE: Surgical OTHR DR: Zahra Canchola MD Tissues: A - Colon Biopsy Procedures: Hematoxylin and Eosin Stain Gross and Microscopic Level 4
[2025-03-18 08:57] VITALS: BP 97/60; PULSE 66; RESP 18; O2SAT 99
[2025-03-18 09:07] VITALS: BP 98/55; PULSE 64; RESP 16; O2SAT 99
[2025-03-18 09:17] VITALS: BP 119/65; PULSE 60; RESP 15; O2SAT 100
== END 2025-03-18 09:27 | disposition home or self-care (01) ==
PROVIDERS: PCP Family Medicine; Referring Provider Family Medicine; Visit Provider Internal Medicine Gastroenterology
PROC: 0DJD8ZZ Inspection of Lower Intestinal Tract, Via Natural or Artificial Opening Endoscopic (ICD-10-PCS; CPT 45378; principal; 2025-03-18 09:30)
DX: R19.4 Change in bowel habit (principal); K57.30 Diverticulosis of large intestine without perforation or abscess without bleeding; K64.8 Other hemorrhoids; F17.290 Nicotine dependence, other tobacco product, uncomplicated; F12.90 Cannabis use, unspecified, uncomplicated
CPT/HCPCS: 45380; 88305; J2704; J7120